=== PATIENT | female | born 1950 | race Caucasian/White ===

== ENCOUNTER 2019-07-30 12:01 | Emergency (ER) | payer MEDICARE, OTHER ==
[~2019-07-30] VITALS: Ht 152.4 cm; Wt 56.8 kg
[~2019-07-30 12:01] MED LIST: FAMO40TA73 PO
--- NOTE | 2019-07-30 12:30 | NUR ---
states she had tightness in her chest when she originally started cosentix 06/2019. States she was kept in hospital for low HR. pt has hx anxiety, takes valium. reports taking 325mg aspirin x2 tablets after experiencing chest pain.
[2019-07-30 12:42] LABS: BASOPHILS # (AUTO) 0.1 X10'3 (0-0.2); BASOPHILS % (AUTO) 1.1 % (0-1); EOSINOPHILS # (AUTO) 0.1 X10'3 (0-0.9); EOSINOPHILS % (AUTO) 1.4 % (0-6); HEMATOCRIT 40.8 % (35.0-45.0); HEMOGLOBIN 13.5 g/dl (12.0-16.0); LYMPHOCYTES # (AUTO) 1.9 X10'3 (1.1-4.8); LYMPHOCYTES % (AUTO) 34.1 % (21-51); MEAN CORPUSCULAR HEMOGLOBIN 30.3 PG (27.0-31.0); MEAN CORPUSCULAR HGB CONC 33.2 g/dL (33.0-36.5); MEAN CORPUSCULAR VOLUME 91.4 FL (78-98); MONOCYTES # (AUTO) 0.5 X10'3 (0-0.9); MONOCYTES % (AUTO) 8.9 % (2-12); NEUTROPHILS # (AUTO) 3.1 X10'3 (1.8-7.7); NEUTROPHILS % (AUTO) 54.5 % (42-75); PLATELET COUNT 323 X10'3 (140-440); RED BLOOD COUNT 4.46 X10'6 (4.20-5.60); RED CELL DISTRIBUTION WIDTH 14.8 % (11.5-14.5); WHITE BLOOD COUNT 5.7 X10'3 (4.5-11.0)
[2019-07-30 13:04] LABS: ALANINE AMINOTRANSFERASE 28 U/L (12-78); ALBUMIN 3.7 G/DL (3.4-5.0); ALBUMIN/GLOBULIN RATIO 0.9 (1.1-1.5); ALKALINE PHOSPHATASE 71 IU/L (46-116); ASPARTATE AMINO TRANSFERASE 26 U/L (10-37); BILIRUBIN,TOTAL 0.2 MG/DL (0.1-1.0); BLOOD UREA NITROGEN 16 MG/DL (7-18); BUN/CREATININE RATIO 14.8 (6.6-38.0); CREATININE 1.08 MG/DL (0.40-0.90); TOTAL CARBON DIOXIDE 24.6 MMOL/L (24-32); TOTAL PROTEIN 7.6 G/DL (6.4-8.2); eGFR 50 ML/MIN
[2019-07-30 13:15] LABS: ANION GAP 8 (8-16); CHLORIDE 107 MMOL/L (99-107); SODIUM 140 MMOL/L (135-145)
[2019-07-30 13:17] LABS: GLUCOSE 47 MG/DL (70-104)
[2019-07-30] MEDS ORDERED: HYDROcodone/acetaminophen 10/325mg tab PO ONE (13:20)
[2019-07-30] MEDS ORDERED: potassium Cl 20 mEq SR tablet PO STA (13:28)
[2019-07-30] MEDS ORDERED: POTA10CA44 PO (13:30)
[2019-07-30 13:47] VITALS: BP 141/75
== END 2019-07-30 13:49 | disposition home or self-care (01) ==
LOC: ER 12:02
DX: R07.89 Other chest pain (principal); E87.6 Hypokalemia; G43.909 Migraine, unspecified, not intractable, without status migrainosus; Z88.6 Allergy status to analgesic agent; Z88.5 Allergy status to narcotic agent; Z79.899 Other long term (current) drug therapy
CPT/HCPCS: 36415; 71045; 80053; 82948; 84484; 85025; 93005; 99284

== ENCOUNTER 2023-12-14 13:37 | Emergency (ER) | payer MEDICARE, OTHER ==
[~2023-12-14] VITALS: Ht 152.4 cm; Wt 60.0 kg
[2023-12-14 13:42] VITALS: TEMP 99.3
[2023-12-14 13:53] LABS: BASOPHILS # (AUTO) 0.1 X10'3 (0-0.2); BASOPHILS % (AUTO) 0.7 % (0-1); EOSINOPHILS % (AUTO) 0.5 % (0-6); HEMATOCRIT 44.7 % (35.0-45.0); HEMOGLOBIN 14.8 g/dl (12.0-16.0); LYMPHOCYTES # (AUTO) 2.9 X10'3 (1.1-4.8); LYMPHOCYTES % (AUTO) 30.5 % (21-51); MEAN CORPUSCULAR HEMOGLOBIN 31.7 PG (27.0-31.0); MEAN CORPUSCULAR HGB CONC 33.1 g/dL (33.0-36.5); MEAN CORPUSCULAR VOLUME 95.8 FL (78-98); MEAN PLATELET VOLUME 6.7 FL (7.4-10.4); MONOCYTES # (AUTO) 0.7 X10'3 (0-0.9); MONOCYTES % (AUTO) 7.8 % (2-12); NEUTROPHILS # (AUTO) 5.7 X10'3 (1.8-7.7); NEUTROPHILS % (AUTO) 60.5 % (42-75); PLATELET COUNT 420 X10'3 (140-440); RED BLOOD COUNT 4.66 X10'6 (4.20-5.60); RED CELL DISTRIBUTION WIDTH 13.7 % (11.5-14.5); WHITE BLOOD COUNT 9.4 X10'3 (4.5-11.0)
[2023-12-14 14:15] LABS: ALANINE AMINOTRANSFERASE 20 U/L (12-78); ALBUMIN/GLOBULIN RATIO 1.2 (1.1-1.5); ALKALINE PHOSPHATASE 64 IU/L (46-116); ANION GAP 17 (8-16); ASPARTATE AMINO TRANSFERASE 31 U/L (10-37); BILIRUBIN,TOTAL 0.4 MG/DL (0.1-1.0); BLOOD UREA NITROGEN 11 MG/DL (7-18); BUN/CREATININE RATIO 8.5 (10.0-20.0); CALCIUM 9.1 MG/DL (8.5-10.1); CHLORIDE 102 MMOL/L (99-107); CREATININE 1.29 MG/DL (0.40-0.90); GLUCOSE 141 MG/DL (70-104); PRO BRAIN NATRIURETIC PEPTIDE 396 PG/ML (0-125); SODIUM 140 MMOL/L (135-145); TOTAL CARBON DIOXIDE 21.4 MMOL/L (24-32); TOTAL PROTEIN 7.4 G/DL (6.4-8.2); eCRCL 28 ML/MIN; eGFR 41 ML/MIN
[2023-12-14 14:23] LABS: POTASSIUM 2.8 MMOL/L (3.5-5.1)
[2023-12-14] MEDS: potassium Cl 20 mEq SR tablet PO STA (14:53)
[2023-12-14] MEDS: HYDROcodone/acetaminophen 5mg/325mg tablet PO ONE (14:55)
[2023-12-14] MEDS: ondansetron/PF 4mg/2ml inj IV ONE (16:20)
[2023-12-14] MEDS: normal saline 1000ml 1,000 ML IV ONE (16:21)
[2023-12-14] MEDS: morphine 2 MG/ML inj. syringe IV ONE ×2 (16:21→19:28)
[2023-12-14] MEDS: POTASSIUM BICARB 20meq eff tab 20 MEQ TABLET.EFF PO ONE (16:53)
[2023-12-14 17:23] VITALS: BP 136/71; PULSE 94; O2SAT 99
[2023-12-14] MEDS: LORazepam 2 mg/ml vial IV ONE (17:44)
[2023-12-14] MEDS ORDERED: LORA-268 PO (19:08)
[2023-12-14 19:28] VITALS: RESP 16
== END 2023-12-14 19:54 | disposition home or self-care (01) ==
LOC: ER 13:38
DX: I16.0 Hypertensive urgency (principal); M25.569 Pain in unspecified knee; G89.29 Other chronic pain; F41.9 Anxiety disorder, unspecified; G43.909 Migraine, unspecified, not intractable, without status migrainosus; H53.489 Generalized contraction of visual field, unspecified eye; Z88.5 Allergy status to narcotic agent; Z88.8 Allergy status to other drugs, medicaments and biological substances; Z79.899 Other long term (current) drug therapy
CPT/HCPCS: 36415; 71045; 80053; 83880; 84484; 85025; 93005; 96361; 96374; 96375; 96376; 99285; J2060; J2270; J2405; J7030

== ENCOUNTER 2025-06-07 05:46 | Day surgery (SDC) | payer MEDICARE, OTHER ==
[2025-06-02 10:21] LABS: MEAN PLATELET VOLUME 7.1 FL (7.4-10.4); PRE OP HEMATOCRIT 40.3 % (35.0-45.0); PRE OP HEMOGLOBIN 13.7 g/dL (12.0-16.0); PRE OP PLATELET COUNT 342 X10'3 (140-440); PRE OP WHITE BLOOD COUNT 7.7 10'3 (4.8-10.8); RED CELL DISTRIBUTION WIDTH 13.7 % (11.5-14.5)
[2025-06-02 10:33] LABS: CREATININE 1.07 MG/DL (0.40-0.90); PRE OP ALT 23 U/L (30-65); PRE OP ANION GAP 10 (8-16); PRE OP AST 31 U/L (10-37); PRE OP BILIRUB, TOTAL 0.4 MG/DL (0.0-1.0); PRE OP GLUCOSE 91 MG/DL (70-104); PRE OP POTASSIUM 3.7 MMOL/L (3.4-5.1); PRE OP SODIUM 143 MMOL/L (135-145); TOTAL CARBON DIOXIDE 24.9 MMOL/L (24-32); eGFR 50 ML/MIN
[~2025-06-07] VITALS: Ht 152.4 cm; Wt 57.1 kg
[2025-06-07] VITALS (24 sets, daily range): BP systolic 121–180; BP diastolic 61–110; PULSE 61–90; RESP 9–30; TEMP 98.4; O2SAT 90–100
[~2025-06-07 05:46] MED LIST changes: +AMLO5TAB16 PO; +CALC600T14 PO; +CETI10CA PO; +CHOL100046 PO; +DUPI300S SQ; -FAMO40TA73 PO; +HYDR-3973 PO; +MAGN500C4 PO; +METO-395 PO; +MULT-1249 PO; +POTA99TA26; +TOPI-95 PO; +TRAZ-256 PO; +VALA500T41 PO
[2025-06-07] MEDS: ceFAZolin 2gm/dext,iso 50mL 50 ML IV ONE (06:07)
[2025-06-07] MEDS: ringers solution, lacted 1,000 ML IV SCH (06:13)
[2025-06-07] MEDS: DOCUMENT DATE & TIME OF BETA-BLOCKER PO ONE (06:29)
[2025-06-07] MEDS ORDERED: methylene blue (5mg/ml) 50mg/10ml ampul IV ONE (06:46)
[2025-06-07] MEDS ORDERED: LIDOcaine 1% 30ml preserv. free vial ONE (06:46)
[2025-06-07] MEDS ORDERED: BUPIVAcaine/PF 2.5mg/ml (0.25%) 10ml vial ONE (06:46)
[2025-06-07] MEDS ORDERED: BUPIVACAINE liposomal/PF 13.3 MG/ML 10mL vial IM ONE (06:47)
[2025-06-07] MEDS ORDERED: dexamethasone 4mg/ml inj ONE (08:00)
[2025-06-07] MEDS ORDERED: desflurane 240ml liquid inh. IH ONE (08:00)
[2025-06-07] MEDS ORDERED: fentaNYL/PF 50MCG/1 ML 2ML syringe ONE (08:07)
[2025-06-07] MEDS ORDERED: midazolam 1 mg/ML 2ml injection ONE (08:07)
[2025-06-07] MEDS ORDERED: propofol inj 20 ML IV ONE (08:17)
[2025-06-07] MEDS ORDERED: LIDOcaine 2% (20mg/ml) 5ml vial ONE (08:17)
[2025-06-07] MEDS ORDERED: rocuronium 10mg/ml inj IV ONE (08:18)
[2025-06-07] MEDS ORDERED: ondansetron/PF 4mg/2ml inj ONE (08:18)
[2025-06-07] MEDS ORDERED: acetaminophen 1,000mg/100ml IV 100 ML IV ONE (08:30)
[2025-06-07] MEDS ORDERED: ringers solution, lacted 1,000 ML IV SCH (08:45)
[2025-06-07] MEDS ORDERED: labetalol 20mg/4ml (5mg/ml) syringe IV PRN (08:45)
[2025-06-07] MEDS ORDERED: ondansetron/PF 4mg/2ml inj IV PRN (08:45)
[2025-06-07] MEDS ORDERED: meperidine/PF 25mg/ml syringe IV PRN ×3 (08:45)
[2025-06-07] MEDS ORDERED: enalaprilat 1.25mg/ml 2ml vial IV PRN (08:45)
[2025-06-07] MEDS: LIDOCAINE 1% w/preservative (10 MG/ML) inj. 10mL VIAL IJ ONE (08:53)
[2025-06-07] MEDS: BUPIVAcaine/PF 2.5mg/ml (0.25%) 10ml vial IJ ONE (08:54)
[2025-06-07] MEDS: BUPIVACAINE liposomal/PF 13.3 MG/ML 10mL vial IM ONE (09:00)
[2025-06-07] MEDS: methylene blue (5mg/ml) 50mg/10ml ampul IV ONE (09:00)
[2025-06-07] MEDS ORDERED: morphine 4 MG/ML inj SYRINge ONE (09:28)
--- NOTE | 2025-06-07 10:10 | OPERATIVE REPORT ---
Operative Report Providers to CC CC: PUSHPA BORGES DO ~ Date of Procedure: Jun 07, 2025 Pre-Operative Diagnosis: Right breast cancer Post-Operative Diagnosis SAME as PRE-Op Procedure Performed 1. Right breast wire localized lumpectomy with SMITH field enumerator, MAJO drain placement 2. Intra-operative ultrasound guidance 3. Right axillary sentinel lymph node biopsy Surgeon: Dr. Pushpa Borges Lumber Sorter Machine photo equipment technician Anesthesiologist: Dante Jefferson Type of Anesthesia: General Findings: Right breast SMITH field enumerator marker in two clips, sentinel lymph nodes x2 Complications None Prosthetics\Implants used: None Estimated Blood Loss: Less than 5 mL Specimen Removed: 1. Right breast wire localized lumpectomy suture marked short superior, long lateral, double deep 2. Posterior margin/muscle suture chin final margin 3. Right axillary sentinel lymph node #1 hot and blue count 1603 4. Right axillary sentinel lymph node #2 hot only Count 273 Description of Procedure: Loan is a 75-year-old female who was diagnosed with right breast cancer. She had a palpable mass that had been growing for years. She was referred to me by her local plastic surgeon for an evaluation. The mass is palpable in the upper inner quadrant. There is additional fibroadenoma in the upper inner quadrant adjacent to the invasive ductal carcinoma. She desires bilateral mastectomy with reconstruction. We were unable to coordinate that surgery locally with the plastic surgeon, therefore we decided to move forward with lumpectomy and sentinel lymph node biopsy and she will follow up at [facility] with the breast and plastic surgeon (Dr. Rollins) for bilateral mastectomy with reconstruction. Loan was seen and evaluated in the preoperative holding area by myself and the anesthesiologist. The right breast was marked with my initials. She had an IV placed in addition to SCDs to the lower extremities. 2 g of Ancef was hanging and administered prior to the start of surgery. She was taken to the operative suite and placed on table in supine position with the arms extended. General anesthesia was administered with an LMA. I scanned the right axilla with the true node gamma probe and identified a hot signal and marked the skin and also compared it to the injection site on the breast in the upper inner quadrant. I then used the SMITH field enumerator probe to identify the hot spot over the palpable area more so to identify the cancer which was adjacent to the fibroadenoma. Subsequently I used the intraoperative ultrasound to scanned the breast and marked the skin. I identified the cancer with the markers there was an adjacent tumor next to it. A proposed incision was made with a marking pen. 1% lidocaine was injected at the proposed incision site. I made my incision with a 10 blade in the upper inner breast. I dissected through the deep dermal layer with the cutting on the cautery. Laine retractors were placed on the edges of the cavity as I dissected further into the tissue to create the anterior flaps. I switched to Caraballo retractors I started with the superior aspect of the dissection while monitoring my distance with the SMITH marker. Once the superior and inferior flaps were created I completely dissected circumferentially around the mass. The posterior margin was closed based on imaging and my assessment intraoperatively. I would sure to dissect at least the fascia with some muscle posteriorly. Once the specimen was removed from the cavity. It was oriented with short stitch superior, long suture lateral, double suture deep. It was placed in the specimen radiograph board and imaged in two views. The markers were in adequate position. The specimen was placed in formalin. The cavity was copiously irrigated and I subsequently excised an additional posterior margin removing pectoralis muscle and the suture marked the final margin. Hemostasis was achieved with Bovie electrocautery. A moistened lap sponge was placed in the cavity as I turned my attention to the right axillary sentinel lymph node biopsy. A proposed incision was made just at the lower aspect of the axilla, 1% lidocaine was injected at the site. I made an incision with a 15 blade and extended it through the deep dermal layer with the cutting on the cautery. The Laine retractors were placed in the cavity, I dissected further through the axillary fascia. I switched to Caraballo retractors. The gamma probe was used to identify a hot spot. Was also blue dye associated with that lymph node. I stabilized it with a tonsil clamp and used the LigaSure for the dissection. The node was completely excised and the count was 1603 outside of the cavity. The specimen was moved off the field and placed in formalin for permanent ev aluation. A 2nd hot lymph node was identified with a count of 273 outside of the cavity. It had been completely excised in the same fashion using the ligature and a tonsil clamp. The cavity was copiously irrigated and hemostasis was achieved with Bovie electrocautery. 10 mL of Vistaseal was placed in total into both cavities. The axillary fascia was closed with 3-0 Vicryl suture, the deep dermal layer was closed with 3-0 Vicryl suture and the skin with 4-0 Monocryl running subcuticular stitch. A MAJO drain was placed in the breast cavity because of the enlarged defect in the upper quadrant of the breast. The drain was sutured laterally outside of the skin with a 3-0 nylon suture. The skin was closed with 3-0 Vicryl in the deep dermal layer and 4-0 Monocryl running subcuticular stitch. The Prineo mesh was placed on both incision sites along with Dermabond glue for final closure. Sterile dressings were placed on both incision sites with tape. A breast binder was placed on the patient. She was taken to recovery in stable condition without complication. Counts repoted as correct: Yes PUSHPA BORGES DO Jun 07, 2025 10:10
[2025-06-07] MEDS: morphine 4 MG/ML inj SYRINge IV PRN (10:13)
--- NOTE | 2025-06-09 11:45 | PATHOLOGY REPORT ---
[facility] [address] [place] [address] SURGICAL PATHOLOGY REPORT CaseNumber: [id number] Surgeon:Briaan Currie M.D. CLINICAL INFORMATION CLINICAL INFORMATION: Breast cancer. DIAGNOSIS DIAGNOSIS: A.BREAST, RIGHT; LUMPECTOMY - INVASIVE DUCTAL ADENOCARCINOMA, PT2 PN0. - LENIN GRADE 2 (SCORE 6: T-3;N-2;M-1). - ALL MARGINS ARE NEGATIVE. DIAGNOSIS: B.BREAST, RIGHT, POSTERIOR; EXCISION - BENIGN BREAST TISSUE. - NEGATIVE FOR IN-SITU OR INVASIVE CARCINOMA. DIAGNOSIS: C.SENTINEL NODE, AXILLARY, RIGHT, #1; EXCISION - ONE BENIGN LYMPH NODE (0/1). DIAGNOSIS: D.SENTINEL NODE, AXILLARY, RIGHT, #2; EXCISION - THREE BENIGN LYMPH NODES (0/3). MICROSCOPIC DESCRIPTION A. BREAST, RIGHT MICROSCOPIC DESCRIPTION: Eight H&E stained slides of a breast lumpectomy are reviewed. The slides ron w a lesion composed of small groups of atypical cells and strands infiltrating into the breast stroma . The lesion is adjacent to the posterior margin but no tumor on ink. All margins are negative. B. BREAST, RIGHT, POSTERIOR MICROSCOPIC DESCRIPTION: Two H&E stained slides are reviewed. The slides show benign breast tissue. N o in-situ or invasive carcinoma is identified. C. SENTINEL NODE, AXILLARY, RIGHT, #1 MICROSCOPIC DESCRIPTION: Three H&E stained slides of a lymph node with multiple levels are reviewed. The slides show a benign lymph node. No carcinoma cells are identified. CKAE1/3 IHC stain is performed and is negative, supporting the diagnosis. D. SENTINEL NODE, AXILLARY, RIGHT, #2 MICROSCOPIC DESCRIPTION: Four H&E stained slides of lymph nodes with multiple levels are reviewed. Th e slides shows three benign lymph nodes. No carcinoma cells are identified. CKAE1/3 IHC stain is performed and is negative, supporting the diagnosis. GROSS DESCRIPTION A. BREAST, RIGHT GROSS DESCRIPTION: Received in a container of formalin labeled with the patient's name, number, and " right breast lumpectomy" is a 58 g oriented excision of fibrofatty breast tissue which measures 7 x 5 .5 x 2.5 cm. There are sutures found marking the superior, lateral, and posterior aspects of the exci jackie. The superior margin is marked blue, the inferior margin is marked green, the medial margin is m arked orange, lateral margin is marked yellow, the anterior margin is marked red, and the posterior m argin is marked black. Sectioning reveals a 3 x 2 x 1 cm firm, rand-guajardo neoplasm which is present 0.5 cm from the posterior margin. Sectioning the neoplasm reveals foreign material (metallic clip). Sect ions are submitted as follows: A1) Superior marginA2) Inferior marginA3) Medial marginA4) Lateral marginA5) Anterior marginA6-A8) P osterior margin with tumor The time at which the specimen was removed was 0857. The time at which the specimen was placed in fo rmalin was 0915. (meb) B. BREAST, RIGHT, POSTERIOR GROSS DESCRIPTION: Received in a container of formalin labeled with the patient's name, number, and " posterior margin" is a less than 1 gram oriented excision of fibrofatty breast tissue which measures 2 x 1.5 x 1 cm. There is a suture found marking the new margin. The new margin is marked black. The s pecimen is sectioned and entirely submitted as B1-B2. The time at which the specimen was removed was 0857. The time at which the specimen was placed in formalin was 0915. (meb) C. SENTINEL NODE, AXILLARY, RIGHT, #1 GROSS DESCRIPTION: Received in a container of formalin labeled with the patient's name, number, and " right axilla sentinel lymph node #1" is a 1 x 1 x 0.7 cm blue stained lymph node candidate. The spec imen is bisected and entirely submitted as C1. D. SENTINEL NODE, AXILLARY, RIGHT, #2 GROSS DESCRIPTION: Received in a container of formalin labeled with the patient's name, number, and " right axilla sentinel lymph node #2" is a 3 x 3 x 2 cm irregularly shaped excision of fat. Sectioning reveals three lymph node candidates. Sections are submitted as follows: D1) Two lymph node candidatesD2) Single bisected lymph node candidate SYNOPTIC REPORT SYNOPTIC TEXT: Specimen Procedure: Excision (less than total mastectomy) Specimen Laterality: Right Tumor Histologic Type: Invasive carcinoma of no special type (ductal) Histologic Grade (Roulette Histologic Score): Glandular (Acinar) / Tubular Differentiation: Score 3 Nuclear Pleomorphism: Score 2 Mitotic Rate: Score 1 Overall Grade: Grade 2 (scores of 6 or 7) Tumor Size: 30 Millimeters (mm) Ductal Carcinoma In Situ (DCIS): Not identified Lymphatic and / or Vascular Invasion: Not identified Treatment Effect in the Breast: No known presurgical therapy Margins Margin Status for Invasive Carcinoma: All margins negative for invasive carcinoma Distance from Invasive Carcinoma to Closest Margin: Greater than 10 mm Closest Margin(s) to Invasive Carcinoma: Posterior Regional Lymph Nodes Regional Lymph Node Status: All regional lymph nodes negative for tumor Total Number of Lymph Nodes Examined (sentinel and non-sentinel): 4 Number of Greenback Nodes Examined: 4 pTNM Classification (AJCC 8th Edition) pT Category: pT2 pN Category: pN0 [facility] 2023 Q2 Release Electronically signed by: Maverick Rae 06/09/2025 11:15:00 AM
== END 2025-06-07 13:59 | disposition home or self-care (01) ==
LOC: PAS 05:46
PROVIDERS: ATTEND Surgery
DX: C50.211 Malignant neoplasm of upper-inner quadrant of right female breast (principal); I10 Essential (primary) hypertension; K21.9 Gastro-esophageal reflux disease without esophagitis; G43.909 Migraine, unspecified, not intractable, without status migrainosus; F41.9 Anxiety disorder, unspecified; G47.00 Insomnia, unspecified; Z87.891 Personal history of nicotine dependence; Z79.891 Long term (current) use of opiate analgesic; Z79.899 Other long term (current) drug therapy; Z90.710 Acquired absence of both cervix and uterus; Z96.659 Presence of unspecified artificial knee joint; Z98.890 Other specified postprocedural states
CPT/HCPCS: 19301; 36415; 38525; 38900; 76098; 80053; 82948; 85025; 88307; 88342; A4215; A4618; A6258; A6402; A7000; J0131; J0666; J1100; J1200; J2003; J2250; J2270; J2405; J2704; J3010; J3490; J7030; J7120; Q9968; Z7506; Z7508; Z7512; Z7610; A6449; C9250